=== PATIENT | male | born 1960 | race Caucasian/White ===

== ENCOUNTER 2019-04-09 12:15 | Inpatient (IN) ==
[2019-04-09] MEDS ORDERED: NS 1,000 ML IV ONE (12:59)
--- NOTE | 2019-04-09 13:14 | Diag Imaging Result Doc PS360 ---
EXAM: CT HEAD W/O CONTRAST INDICATION: stroke like sx TECHNIQUE: This exam was performed using automated exposure control, adjustment of mA or kV according to patient size, and/or use of iterative reconstruction technique. COMPARISON: None. FINDINGS: There is a left basal ganglion Virchow-Jimmy space or, less likely, a small chronic lacunar infarct. There is no definite acute infarct given the limited sensitivity of CT versus MRI. There is no discrete intracranial mass, mass effect, or intracranial hemorrhage. There is extensive pansinus mucosal thickening indicating sinusitis. Surrounding soft tissues and bony structures are essentially unremarkable, otherwise. IMPRESSION: 1.No evidence of acute intracranial pathology. 2.Pansinusitis. Electronically signed by Ashok Marin 04/09/2019 1:11 PM
[2019-04-09 13:56] LABS: AGAP 12; ALB/GLOB RATIO 1.3; ALKALINE PHOSPHATASE 111 U/L (32-122); BUN 17 mg/dL (8-22); CALCIUM 8.8 mg/dL (8.8-10.2); CHLORIDE 100 mmol/L (98-107); CK PROFILE 57 U/L (24-204); COSMO 277; CREATININE 0.9 mg/dL (0.7-1.2); ESTIMATED GFR > 60; GLUCOSE 89 mg/dL (70-104); GOT 11 U/L (10-34); GPT 11 U/L (10-44); POTASSIUM 4.1 mmol/L (3.5-5.1); SODIUM 138 mmol/L (136-145); TCO2 26 mmol/L (25-35); TOTAL BILIRUBIN 0.17 mg/dL (0.20-1.00); TOTAL PROTEIN 7.2 g/dL (6.3-8.3)
[2019-04-09 14:03] LABS: BASO# 0.06 X1000 (0.0-0.2); BASO% 0.4 % (0.0-0.8); EOS# 0.24 X1000 (0.0-0.7); EOS% 1.5 % (0.0-10.0); HEMATOCRIT 41.7 % (42.0-52.0); HEMOGLOBIN 13.8 g/dL (14.0-18.0); IMM GRAN# 0.02 X1000 (0.0-0.04); IMM GRAN% 0.1 % (0.0-0.5); LYMPH# 3.04 X1000 (1.2-3.4); LYMPH% 18.6 % (20.5-51.1); MCH 28.9 PG (27-31); MCHC 33.1 g/dL (33-37); MCV 87.2 FL (81-99); MONO% 5.5 % (1.7-9.3); MPV 11.2 FL (7.4-10.4); NEUT# 12.11 X1000 (1.4-6.5); NEUT% 73.9 % (42.2-75.2); PLT 253 X1000 (130-400); RBC 4.78 XMIL (4.7-6.1); WBC 16.37 X1000 (4.8-10.8)
[2019-04-09] MEDS ORDERED: ZOFRAN IV PRN (14:39)
[2019-04-09 14:59] LABS: URINE SOURCE CLEAN CATCH
[2019-04-09 15:02] LABS: BILIRUBIN URINE NEGATIVE (NEGATIVE); BLOOD URINE NEGATIVE (NEGATIVE); COLOR YELLOW; GLUCOSE URINE NEGATIVE (NEGATIVE); KETONE URINE NEGATIVE (NEGATIVE); LEUKOCYTES URINE NEGATIVE (NEGATIVE); NITRITE URINE NEGATIVE (NEGATIVE); PROTEIN URINE NEGATIVE (NEGATIVE); SP GRAVITY URINE 1.015; TURBIDITY URINE CLEAR (CLEAR); UROBILINOGEN URINE NORMAL (NORMAL)
[2019-04-09 15:03] LABS: UR EPITHELIAL CELLS <10 /HPF (<10); URINE BACTERIA NEGATIVE /HPF; URINE RBC <10 /HPF (<10); URINE WBC <10 /HPF (<10)
[2019-04-09] MEDS: NS 1,000 ML IV ONE ×2 (18:33→18:51)
[2019-04-09] MEDS ORDERED: ASPIRIN PO STA (18:48)
[2019-04-09] MEDS ORDERED: NICODERM PATCH TD SCH (19:00)
--- NOTE | 2019-04-09 19:36 | HISTORY AND PHYSICAL ---
CHIEF COMPLAINT: Left arm and leg weakness. HPI: The patient is a 58-year-old white male followed by Dr. Lowery. Presents to the emergency room today. States he began having some left leg weakness initially. He noted that when he woke up on 04/07/2019. Said felt like his leg was a little weak but he was able to go on to work and did not think much of it. He notes he got up yesterday morning and the weakness was in his arm and left leg to the point he had trouble stabilizing himself and he had to sit down to finish shaving. He noted no weakness in his face and had no difficulty with his speech. He has had no headache, nausea, or vomiting. Does note yesterday morning he took a Imitrex as he has had migraine headaches for the past 3 years by his report and the headache 1 year ago was diagnosed as migraine and he was given Imitrex to take when that occurs. He notes with those headaches he was having some right shoulder, possible right upper arm weakness. ALLERGIES: NKDA. PAST MEDICAL HISTORY: Possible migraine headaches. PAST SURGICAL HISTORY: ORIF right distal leg related to a fracture many years ago. FAMILY HISTORY: Stroke in his mother, [place] in his mother with cardiac arrest in his mother, hypertension in his daughter. No cancer in the family. SOCIAL HISTORY: The patient lives [place], he is . He has one daughter and 2 step sons. 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 He smokes 1 pack a cigarettes per day and has for over 20 years. REVIEW OF SYSTEMS: Negative except as above. PHYSICAL EXAM: Afebrile, pulse 75, respirations 18, blood pressure 143/90, O2 saturation room air 99%, weight 145, height 5 feet 8 inches tall. SKIN: No rashes. HEENT: NC/AT. HEENT: PERRL. EOMI. No redness. Tongue in the midline . NECK: No LA, TMG, JVD, bruits. CV: RRR without murmur. LUNGS: CTA. ABDOMEN: Soft, NT, ND, no mass no HSM but difficult exam due to patient cooperation AND RECTAL: Deferred. EXTREMITIES: No CCE, peripheral pulses 2+. NEURO: Cranial nerves 2-12 are intact. On questioning his daughters, they have not noticed any asymmetries to his face but there might be minimal left facial asymmetry on my exam. This may be normal variant for the patient. DTRs are equal. UE is at 2 to 3+ over 4 brachioradialis and biceps bilaterally. Knee jerk is 3+ over 4 bilateral, peripheral pulses 2+. There is mild decreased strength in the left bilingual receptionist compared to the right. Moves all extremities well. No definite weakness in his left leg can be elicited. White count 16.3, hemoglobin 13.8, hematocrit 41.7, MCV 87, platelets 253,000, neutrophils 73, lymphocytes 18.6. Sodium 138, potassium 4.1, chloride 100, CO2 26, BUN 17, creatinine 0.9, glucose 89, calcium 8.8, total bilirubin 0.17, AST 11, ALT 11, alkaline phosphatase 111, CK total 57, total protein 7.2, albumin 4.0. Urinalysis negative. CT scan of the head without contrast was done and shows Virchow-Jimmy space or less likely a chronic small lacunar infarct on the left basal ganglia area. No acute infarct identified. Pansinusitis is noted. ASSESSMENT: 1. Left arm and leg weakness, rule out cerebrovascular accident rule out related #2 rule out related to #3. 2. Pansinusitis. 3. History of migraine headaches with prior neurological difficulties with arm weakness by report . 4. Elevated blood pressure. 5. Tobacco abuse. PLAN: At this time will give the patient aspirin 325 mg now and start that daily thereafter. Treat his sinusitis with Augmentin. He has received some IV hydration will continue that, will give him nicotine patch and counseled him to stop smoking. He is swallowing well get him healthy heart diet, check carotid Doppler studies in the morning, check MRI of the brain with, without cotton contrast in the morning. Follow neurological checks, labs, blood pressure remain modestly elevated due to potential for CVA but will need MRI to help rule out CVA or tumor that will be obtained in the morning. cc: Jah Voss MD
[2019-04-09] MEDS: AUGMENTIN PO SCH (20:02)
--- NOTE | 2019-04-09 23:18 | EKG Report ---
Test Performed on : 04/09/2019 12:32:42 PM Test Reason : ams Blood Pressure : / mmHG Vent. Rate : 071 BPM Atrial Rate : 071 BPM P-R Int : 152 ms QRS Dur : 090 ms QT Int : 370 ms P-R-T Axes : 006 011 013 degrees QTc Int : 402 ms Normal sinus rhythm. Normal ECG No previous ECGs available Confirmed by Tyesha BONE, Rip ([id number]) on 04/10/2019 9:22:07 AM
[2019-04-10 05:24] LABS: BASO# 0.02 X1000 (0.0-0.2); BASO% 0.1 % (0.0-0.8); EOS# 0.28 X1000 (0.0-0.7); EOS% 1.8 % (0.0-10.0); HEMATOCRIT 40.4 % (42.0-52.0); HEMOGLOBIN 13.3 g/dL (14.0-18.0); IMM GRAN# 0.03 X1000 (0.0-0.04); IMM GRAN% 0.2 % (0.0-0.5); LYMPH# 1.74 X1000 (1.2-3.4); LYMPH% 11.2 % (20.5-51.1); MCH 28.8 PG (27-31); MCHC 32.9 g/dL (33-37); MCV 87.4 FL (81-99); MONO# 0.84 X1000 (0.11-0.59); MONO% 5.4 % (1.7-9.3); MPV 11.1 FL (7.4-10.4); NEUT# 12.67 X1000 (1.4-6.5); NEUT% 81.3 % (42.2-75.2); PLT 232 X1000 (130-400); RBC 4.62 XMIL (4.7-6.1); WBC 15.58 X1000 (4.8-10.8)
[2019-04-10 05:42] LABS: AGAP 12; BUN 16 mg/dL (8-22); CALCIUM 8.2 mg/dL (8.8-10.2); CHLORIDE 106 mmol/L (98-107); CHOLESTEROL 151 mg/dL (0-200); COSMO 284; CREATININE 0.8 mg/dL (0.7-1.2); ESTIMATED GFR > 60; GLUCOSE 118 mg/dL (70-104); HDL 29 mg/dL (35-55); LDL 102 mg/dL; POTASSIUM 4.3 mmol/L (3.5-5.1); SODIUM 141 mmol/L (136-145); TCO2 23 mmol/L (25-35); TRIGLYCERIDES 101 mg/dL (39-160); VLDL 20 mg/dL
[2019-04-10] MEDS: AUGMENTIN PO SCH ×2 (09:50→20:34)
[2019-04-10] MEDS: ASPIRIN PO SCH (09:51)
--- NOTE | 2019-04-10 10:19 | Diag Imaging Result Doc PS360 ---
EXAM: MRI BRAIN W/WO CONTRAST HISTORY: lt arm and leg weakness TECHNIQUE: MRI brain with and without contrast. Axial, sagittal, and coronal images obtained in multiple sequences. These are followed by post contrasted axial and coronal images. COMPARISON: None. FINDINGS: There is a recent 10 mm right pontine infarct. No other recent infarct. No mass or midline shift. No enhancing lesion on the post contrasted images. No hydrocephalus. No epidural or subdural fluid collection. Normal orbits. Prominent mucus in the frontal, ethmoid, and maxillary sinuses. IMPRESSION: 1.Recent right pontine infarct 2.Sinusitis Electronically signed by Byron Siddiqui 04/10/2019 10:16 AM
--- NOTE | 2019-04-10 21:29 | PROGRESS NOTE ---
DATE: 04/10/2019 SUBJECT: Interval history was reviewed. A 58-year-old white gentleman was admitted to the hospital yesterday with left side weakness since Wednesday. He was not seen in my office since 08/11/2016. He had migraine headaches on the right side complex, got better on Imitrex and Topamax. He was progressively not getting any better, as a result he came to the hospital. Complains of some weakness on the left side. No headache. No seizures. PAST MEDICAL HISTORY: Reviewed. PAST SURGICAL HISTORY: Reviewed. MEDICINES: Reviewed. ALLERGIES: Not known. PHYSICAL EXAM: Temperature is 98 degrees, pulse 74, blood pressure is 137/83. HEENT: No facial asymmetry. Tongue is in midline. Neck: Supple. No carotid bruit. Chest: Clear to auscultation. Heart: Sounds are regular. Belly: Soft, nontender. No signs of peritonitis and 4/5 weakness in the left upper extremity and lower extremity. Babinski is negative. Sensory exam is intact. No cerebellar signs. INVESTIGATIONS: White cell count 15.5, hematocrit 40, platelets 232,000. Sodium 140, potassium 4.3, chloride 106, BUN 16, creatinine 0.8, glucose 118, calcium 8.2. Liver function tests were normal. Triglycerides 101, cholesterol 151, LDL 102, HDL 29. Urinalysis is clear. EKG normal sinus nothing acute. CT head, no evidence of acute intracranial pathology. Pansinusitis. ASSESSMENT AND PLAN: 1. Left-sided weakness, rule out cerebrovascular accident. 2. Left maxillary sinusitis, elevated white cell count. 3. Tobacco abuse. 4. Low HDL. 5. Significant family history of diabetes and heart attacks. 6. Complex migraine on the right side. Plan of care is MRI of the brain, aspirin, Augmentin for sinus infection. HDL is low. Consider using Lipitor 20 mg daily. Quit smoking. Follow up on carotid Doppler studies. Discussed the plan of care with family. Initiate vaccination protocol prior to the discharge. LEVEL OF DOCUMENTATION: 35 minutes. cc: MD Jah Hopson MD
[2019-04-11 06:14] LABS: HEMOGLOBIN A1C 5.2 % (4.8-6.0)
[2019-04-11 08:08] VITALS: BP 158/83
[2019-04-11] MEDS ORDERED: FLU VACCINE IM ONE (09:03)
[2019-04-11] MEDS: AUGMENTIN PO SCH (09:23)
[2019-04-11] MEDS: ASPIRIN PO SCH (09:23)
--- NOTE | 2019-04-11 10:41 | Carotid Study ---
DATE: 04/09/2019 REQUESTING PHYSICIAN: Dr. Voss. PROJECTS MANAGER: David. INDICATIONS: Left arm and left leg weakness. EQUIPMENT: [email or web address] Vivid E9 ultrasound system a 9 L-D transducer. FINDINGS: Complete diagram of ultrasound images can be seen scanned in the patient's medical record. The peak systolic velocity noted on the right side is in the distal internal carotid artery and is noted to be 69. The peak systolic velocity noted on the left side is noted also in the distal internal carotid artery and is noted to be 112. The calculated internal common ratio on the right 0.71, left 1.11. Calculated stenosis on the right 0 to 39 percent, left 40 to 59 percent. There appears to be some atherosclerosis that is producing a normal to mild stenosis on the right and a moderate stenosis on the left. The left side is likely closer to the 40% stenosis. Both vertebral arteries were antegrade flow. INTERPRETATION: Moderate stenosis noted on the left of 40 to 59 percent. This is likely closer to the 40% range. The right side is normal to mild. I would recommend continue monitoring. cc: MD Jah Arroyo MD
[2019-04-11] MEDS ORDERED: LIPITOR PO SCH (21:00)
--- NOTE | 2019-04-13 21:48 | DISCHARGE SUMMARY ---
ADMISSION DATE: 04/09/2019 DISCHARGE DATE: 04/11/2019 DISCHARGING DIAGNOSIS: Right-sided olya stroke with left-sided weakness. SECONDARY DIAGNOSES: 1. Tobacco abuse. 2. Left maxillary sinusitis. 3. Low HDL. 4. Complex migraine on the right side, stable. PROCEDURES: 1. MRI of the brain, recent right pontine infarct, sinusitis, mostly on the left side. 2. Carotid Dopplers, right ICA/CCA ratio 0.7, left side is 1.1. No hemodynamic stenosis in either internal carotid system. Antegrade flow in both vertebral arteries noted. Has a clot developed in left distal CCA and external carotid artery. 3. EKG, normal sinus nothing acute. 4. CT head, pansinusitis. No evidence of acute intracranial pathology. BRIEF HISTORY: Please see the history and physical that was done on 04/09/2019. In brief, he is a 58-year-old white male who was not seen in my office for a while. Came in with left-sided weakness, stumbling. He did not have any facial asymmetry. He had a complex migraine on the right side. The patient was admitted for possible CVA. HOSPITAL COURSE: The patient had further workup, revealed right pontine stroke on the MRI. Carotid Dopplers were negative. He was smoking, low HDL. Continue medical management as discussed with the patient. He also has elevated white cell count due to sinus infection. The patient was given Augmentin. LABORATORIES: CBC: White cell count 15, hematocrit 40, platelets 232,000. Sodium 140, potassium 4.3, chloride 106, BUN 16, creatinine 0.8. A1c 5.2, triglycerides 101, cholesterol 150, HDL is 29. DISCHARGE INSTRUCTIONS: 1. Flu vaccine 04/11/2019. 2. Aspirin 325 daily, Lipitor 20 daily, Augmentin 875 p.o. b.i.d. 3. Follow up in my office in 10 days. 4. Continue on secondary prevention, quit smoking. cc: MD Jah Hopson MD
--- NOTE | 2019-04-29 22:30 | PROVIDER DOCUMENTATION ---
This chart was entered by Madalyn Cerda Scribe, acting as scribe for Flex Hubbard DO. HPI-Neurological Disorder - General Chief Complaint: Stroke-Like Symptoms Stated Complaint: LEFT SIDE WEAKNESS,HAND SWELLING Time Seen by Provider: 04/09/19 12:31 Source: patient Allergies/Adverse Reactions: Patient Allergies Allergy/AdvReac Type Severity Reaction Status Date / Time No Known Allergies Allergy Verified 04/09/19 12:45 Home Medications: Home Medication List Medication Instructions Recorded Confirmed Last Taken Type Amoxicillin/Potassium Clav 1 ea PO BID #14 tab 04/11/19 Unknown Rx [Augmentin 875-125 Tablet] Aspirin 325 mg PO DAILY #90 tab 04/11/19 Unknown Rx Atorvastatin Calcium [Lipitor] 20 mg PO DAILY #90 tab 04/11/19 Unknown Rx - History of Present Illness-Neuro Nature of Presenting Problem: 58 y/o male presents to the ED with complaint of left sided weakness since Wednesday as well as left hand swelling yesterday. gives a history of migraine headaches and they thought this could be the onset of a migraine so the patient took Imitrex Wednesday and Wednesday. The patient states Wednesday he began to feel left sided weakness while brushing his teeth and had to go to bed to rest. Onset/Duration: reports: 2 days ago Timing: reports: still present Context: reports: other (LLE and LLE weakness). denies: facial droop Character of Altered Mental Status: reports: N/A Any recent trauma/injury?: reports: none Character of Deficits: reports: new weakness (LLE and LUE), decreased ability to walk New weakness or altered sensation location:: reports: LUE, LLE Cognitive Baseline: alert, oriented x3 Gait Baseline: walks without assistance Associated Symptoms: reports: weakness (left). denies: fever/chills, vomiting Similar Symptoms Previously?: No Recently seen or treated by another doctor?: No Review of Systems - Adult - REVIEW OF SYSTEMS - ADULT Constitutional: denies: chills, fever, weight loss Eyes: reports: no symptoms reported Ears, Nose, Mouth & Throat: reports: no symptoms reported Cardiovascular: reports: no symptoms reported Respiratory: reports: no symptoms reported Gastrointestinal: denies: diarrhea, nausea, vomiting Genitourinary: reports: no symptoms reported Musculoskeletal: reports: no symptoms reported Integumentary: reports: no symptoms reported Neurological: reports: other (LLE and LUE weakness). denies: heada huma/migraines, slurred speech, syncope Psychiatric: reports: no symptoms reported Endocrine: reports: no symptoms reported Hematologic/Lymphatic: reports: no symptoms reported Allergic/Immunologic: reports: no symptoms reported All Other Systems: Reviewed and Negative Past History - Adult - PAST MEDICAL HISTORY-ADULT Review of Records: reports: Old Records Reviewed, Nursing Assessment Review, Medications Reviewed - IMMUNIZATION STATUS Childhood Immunizations: See Nurse Assessment Flu Vaccine: See Nurse Assessment - SOCIAL HISTORY Smoking: cigarettes Provider spent 3-5 mins advising pt. on dangers of tobacco.: Discussed manners to quit use, and f/u contacts for add'l counseling. Physical Exam- Neurological - Physical Exam-Neuro Initial Vital Signs Reviewed: Yes General Appearance: alert, no apparent distress Eye Exam: bilateral eye: PERRL HENMT: normocephalic/atraumatic, moist mucous membranes, normal ENT inspection Head Injury: no evidence of injury. negative: Maurice's Sign, raccoon eyes Neck: full range of motion, supple. negative: carotid bruit Respiratory: lungs clear, normal breath sounds. negative: rales, rhonchi, wheezing Cardiovascular: regular rate, rhythm, no edema, no gallop, no murmur Abdominal Exam: normal bowel sounds, non tender, soft media account executive Exam: normal hearing, normal speech, PERRL. negative: facial droop Coordination/Gait: normal finger to nose Motor/Sensory: pronator drift (L), weak motor strength LUE Progress - PLAN OF CARE/RESULTS Progress/Plan/Lab Results: Orders Category Date Time Status Admit [facility] Routine AdmDCTranf 04/09/19 14:40 Active Activity - Bed Rest with BRP ORDERED Care 04/09/19 14:39 Active Neurological Check Q4H Care 04/09/19 14:41 Active Z-Document. for Tele Applied ORDERED Care 04/09/19 14:41 Completed Heart Healthy Diet Diet 04/09/19 14:[address] HEAD W/O CONTRAST [CT] Stat Exams 04/09/19 12:30 Completed CBC WITH ELECTRONIC DIFF [HEME] Stat Lab 04/09/19 13:10 Completed CK PROFILE [SP CHEM] Stat Lab 04/09/19 13:10 Completed COMPREHENSIVE METABOLIC PANEL [CHEM] Stat Lab 04/09/19 13:10 Completed UA NIMS W/REFLEX CULT [URINALYSIS] Stat Lab 04/09/19 14:47 Completed 0.9% Sodium Chloride Inj [Ns] 1,000 ml Med 04/09/19 14:39 Discontinued IV 125 mls/hr 0.9% Sodium Chloride Inj [Ns] 1,000 ml Med 04/09/19 12:59 Discontinued IV 999 mls/hr Aspirin Med 04/10/19 09:00 Discontinued 325 mg PO DAILY Ondansetron [Zofran] Med 04/09/19 14:39 Discontinued 4 mg IV Q4H PRN PRN Oxygen Device Routine Oth 04/09/19 14:41 Completed Telemetry [OM.EQ] Routine Oth 04/09/19 14:39 Active Transfer/Admit Order [TRANSFER] Routine Transfer 04/09/19 14:45 Completed Result Diagrams: 04/10/19 04:55 04/10/19 04:55 - EKG 1 Time of EKG reading by physician:: 12:32 EKG Read and Signed by:: Flex Hubbard EKG Interpretation (*Must complete 3 of following elements*): Normal Rate: 71 Rhythm: NSR Viola: normal - CT/MRI 1 CT Study: Head (EXAM: CT HEAD W/O CONTRAST INDICATION: stroke like sx TECHNIQUE: This exam was performed using automated exposure control, adjustment of mA or kV according to patient size, and/or use of iterative reconstruction technique. COMPARISON: None. FINDINGS: There is a left basal ganglion Virchow-Jimmy space or, less likely, a small chronic lacunar infarct. There is no definite acute infarct given the limited sensitivity of CT versus MRI. There is no discrete intracranial mass, mass effect, or intracranial hemorrhage. There is extensive pansinus mucosal thickening indicating sinusitis. Surrounding soft tissues and bony structures are essentially unremarkable, otherwise. IMPRESSION: 1.No evidence of acute intracranial pathology. 2.Pansinusitis. Electronically signed by Ashok Marin 04/09/2019 1:11 PM) - CONSULTS/PCP/HOSPITALIST Notification #1 *Consult/PCP/Hospitalist*: Dr Bipin Nunn Disposition: Admit (will come see in a room) Departure - Departure Date of Disposition Decision: 04/09/19 Time of Disposition Decision: 14:39 DIAGNOSIS: TIA (transient ischemic attack) Disposition: ADMITTED INPATIENT 09 Certified Medical Emergency: Emergent Condition: Fair - Critical Care Note This patient required my direct & personal management of CC.: No Attestation - Physician/ JDOIE Attestation Patient care was provided by Advanced Practice Provider:: No The physician spent face to face time with patient:: Yes Advanced Practice Provider documentation review:: Supervising physician onsite and consulted in the evaluation and care of this patient. The physician did have a face to face encounter with the patient. - NIH Stroke Scale NIH Type: Initial Evaluation Level of Consciousness: 0-Alert LOC Questions (ask month and age): 0-Answers Both Correctly LOC Commands (ask to open & close eyes;make a fist, let go): 0-Obeys Both Correctly Best Gaze (horizontal eye movement): 0-Normal Visual (use finger movement, counting or visual threat): 0-No Visual Loss Facial Palsy (show teeth or raise eyebrows & close eyes tght: 0-Symmetrical Movement Motor Function-left arm: 1-Drift Motor Function-right arm: 0-Normal Motor Function-left le-Normal Motor Function-right le-Normal Limb Ataxia(bqtqgs-vvas-euydlq, or heel to kelley): 0-No Ataxia Sensory(pin prick to face,arms,trunk,legs-compare side/side): 0-No Ataxia Best Language(name item/read sentence.Ex-Down to Earth): 0-No Aphasia Dysarthria(Pt read words or say words Ex.Mama,Tip-Top,Thanks: 0-Normal Articulation Extinction and Inattention: 0-Normal NIH Total Score: 1 Modified [place] Score Criteria: 2-slight disability This chart was documented by the indicated scribe, (Madalyn Cerda, Scribe) and accurately reflects the services I performed and decisions made by me, Flex Hubbard DO, as attested by the provider's signature.
== END 2019-04-11 10:08 | disposition home or self-care (01) | DRG 65 ==
LOC: ED 12:15 → EDIPHOLD 15:53 → 1N 17:12
PROVIDERS: ADMIT Family Medicine; ATTEND Internal Medicine